=== PATIENT | female | born 1950 | race Caucasian/White ===

== ENCOUNTER 2018-10-14 05:40 | Outpatient (CLI) | payer MEDICARE ==
[~2018-10-14] VITALS: Ht 167.6 cm; Wt 90.7 kg
[2018-10-14] MEDS ORDERED: METO50TA15 PO (09:20)
[2018-10-14] MEDS ORDERED: VERA180T5 PO (09:20)
[2018-10-14] MEDS ORDERED: ATOR10TA66 PO (09:20)
[2018-10-14] MEDS ORDERED: NF-METHI10 PO (09:20)
[2018-10-14] MEDS ORDERED: INSU100I29 SQ (12:23)
[2018-10-14] MEDS ORDERED: OMEP20CA12 PO (12:23)
[2018-10-14] MEDS ORDERED: INSU100I14 SQ (12:23)
[2018-10-14] MEDS ORDERED: METF-397 PO (12:23)
== END 2018-10-14 12:29 | disposition home or self-care (01) ==
LOC: PREOP 05:40
PROVIDERS: ATTEND Podiatrist Foot & Ankle Surgery
DX: Z01.818 Encounter for other preprocedural examination (principal)

== ENCOUNTER 2018-10-22 10:42 | Day surgery (SDC) | payer MEDICARE ==
[~2018-10-22] VITALS: Ht 167.6 cm; Wt 90.7 kg
[~2018-10-22 10:42] MED LIST: ATOR10TA66 PO; INSU100I14 SQ; INSU100I29 SQ; METF-397 PO; METO50TA15 PO; NF-METHI10 PO; OMEP20CA12 PO; VANCOMYCIN INJECTION 1,000 MG in NS (IVPB) 250 ML IV ONE; VERA180T5 PO
[2018-10-22] MEDS ORDERED: LACTATED RINGERS 1,000 ML IV PRN ×2 (11:08)
[2018-10-22 11:30] VITALS: BP 182/60
[2018-10-22] MEDS ORDERED: PROPOFOL INJECTION 0 ML IV ONE (11:47)
[2018-10-22] MEDS ORDERED: MIDAZOLAM 2 MG/2 ML (VERSED) VIAL ONE (11:47)
[2018-10-22] MEDS ORDERED: DEXAMETHASONE 10 MG/ML (DECADRON) 1 ML VIAL ONE (11:48)
[2018-10-22] MEDS ORDERED: LIDOCAINE 1% INJ 20 ML 20 ML VIAL ONE (11:49)
[2018-10-22] MEDS ORDERED: BUPIVACAINE 0.5% 30 ML (SENSORCAINE) VIAL ONE (11:49)
[2018-10-22] MEDS ORDERED: LIDOCAINE PF 2% 5 ML (XYLOCAINE) VIAL ONE (12:47)
[2018-10-22] MEDS ORDERED: proPOfol 200 MG/20 ML (DIPRIVAN) VIAL IV ONE (12:47)
[2018-10-22] MEDS ORDERED: fentaNYL INJECTION 100 MCG/2 ML AMP ONE (12:49)
[2018-10-22] MEDS ORDERED: ONDANSETRON 4 MG/2 ML (SDV) Z0FRAN ONE (13:12)
--- NOTE | 2018-10-22 13:14 | Progress Note-Pre Operative ---
Pre-Operative Progress Note H&P Reviewed The H&P was reviewed, patient examined and no changes noted. Date Seen by Provider: Oct 22, 2018 Time Seen by Provider: 12:50 Date H&P Reviewed: Oct 22, 2018 Time H&P Reviewed: 12:51 Pre-Operative Diagnosis: Exostosis left 5th metatarsal GUANAKITO DONALD DPM Oct 22, 2018 13:14
[2018-10-22] MEDS ORDERED: LACTATED RINGERS 1,000 ML IV SCH (13:50)
--- NOTE | 2018-10-22 13:50 | Progress Note-Post Operative ---
Post-Operative Progess Note Surgeon (s)/Gas Meter Installer (s) Surgeon GUANAKTIO DONALD DPM Gas Meter Installer: none Pre-Operative Diagnosis Exostosis left 5th metatarsal Post-Operative Diagnosis Soft Tissue Lesion left 5th metatarsal base area Procedure & Operative Findings Date of Procedure 10/22/18 Procedure Performed/Findings Excisional Biopsy of the left foot lesion Anesthesia Type General Estimated Blood Loss Estimated blood loss (mL): minimal Specimens/Packing Specimens Removed Soft tissue lesion of the left 5th metatarsal base GUANAKITO DONALD DPM Oct 22, 2018 13:50
[2018-10-22] MEDS ORDERED: ACHD5005 PO (13:53)
[2018-10-22] MEDS ORDERED: HYDROcodone/APAP 5 MG/325 MG (LORTAB) TAB PO PRN (14:00)
[2018-10-22] MEDS ORDERED: ONDANSETRON 4 MG/2 ML (SDV) Z0FRAN IVP PRN (14:00)
[2018-10-22] MEDS ORDERED: morphine INJ 10 MG/ML 1ML (SYR OR VIAL) IVP ONE (14:00)
[2018-10-22] MEDS ORDERED: diphenhydrAMINE 50 MG/ML INJ (BENADRYL) ONE (14:03)
[2018-10-22] MEDS ORDERED: diphenhydrAMINE 50 MG/ML INJ (BENADRYL) IVP ONE (14:15)
[2018-10-22 14:55] VITALS: BP 160/75
--- NOTE | 2018-10-22 15:04 | Physical Therapy Progress Note ---
Therapy Progress Note PT discussed with family on equipment needs and patient status PLOF. Family report patient has FWW and family support established and they declined PT intervention. Thank you for this referral. RUBEN HOLLAND PT Oct 22, 2018 15:04
[2018-10-22] MEDS ORDERED: HYDROcodone/APAP 5 MG/325 MG (LORTAB) TAB ONE (15:19)
[2018-10-22 15:25] VITALS: BP 165/82
[2018-10-22 15:55] VITALS: BP 164/86
[2018-10-22 16:05] VITALS: BP 164/86
--- NOTE | 2018-10-23 00:34 | OPERATIVE REPORT ---
DATE OF SERVICE: 10/22/2018 SURGEON: Flavia Donald DPM. PREOPERATIVE DIAGNOSIS: Exostosis left fifth metatarsal. POSTOPERATIVE DIAGNOSIS: Soft tissue lesion, left fifth metatarsal base area. PROCEDURE: Excisional biopsy of the lesion left fifth metatarsal base area. WOUND CLASS: Clean. ANESTHESIA: General. HEMOSTASIS: Pneumatic thigh tourniquet at 300 mmHg. INDICATIONS: This 67-year-old female presents complaining of painful lesion to the dorsal lateral aspect of the left foot. Conservative therapy has met with unsatisfactory results and the patient is agreeable to surgical intervention after risks and complications were discussed at length. No guarantees were extended to the patient and she is willing to proceed. DESCRIPTION OF PROCEDURE: The patient was brought back to the operating table, placed in secure supine position. A general anesthetic was then induced. A pneumatic thigh tourniquet was placed on the left lower extremity over several layers of padding. Appropriate timeout was performed. The left foot was then prepped and draped in normal sterile manner. The left foot was then elevated and allowed to exsanguinate, after which the tourniquet was inflated to 300 mmHg. Attention was then directed to the dorsal lateral aspect of the left 5th metatarsal base area overlying the elevated soft tissue lesion where a 2 cm longitudinal linear incision was created. The incision was deepened in the same plane with great care to identify and retract all vital neurovascular structures. All the necessary blood vessels were cauterized as encountered. The incision was deepened down to the deep tissue where the deep fascia was located. Overlying the periosteum was a hard soft tissue mass, but was not necessarily strongly adhered to the periosteum and had a crystal type appearance to it and it was excised and sent for gross and microscopic evaluation. This area was debrided and hand rasp was utilized to smooth out the area. The area was then flushed with copious amounts of normal saline, after which closure was then performed in layers. Deep closure was performed with 4-0 Vicryl, superficial with 4-0 Vicryl, skin was closed with 4-0 Prolene in a simple interrupted type stitch. Postoperative injection consisted of 6 mL of 0.5% Marcaine plain in a local infusion to the surgical site as well as 10 mg dexamethasone. Postoperative dressing consisted of Betadine soaked Adaptic, sterile 4 x 4, sterile Kerlix all secured with a Coban wrap. The patient tolerated the anesthesia and procedure well and was transported from the operating room to the recovery area with vital signs stable and vascular status intact to all digits of the left foot. The patient was given postoperative instructions and she is to follow up in my office in 10 days' period of time or sooner if necessary. Job ID: [id number] DocumentID: [id number] Dictated Date: 10/22/2018 13:57:54 Project Officer Date: 10/23/2018 00:33:46 Dictated By: FLAVIA DONALD DPM
== END 2018-10-22 16:05 | disposition home or self-care (01) ==
LOC: SDC 10:42
PROVIDERS: ATTEND Podiatrist Foot & Ankle Surgery
DX: M89.9 Disorder of bone, unspecified (principal); E11.9 Type 2 diabetes mellitus without complications; E05.90 Thyrotoxicosis, unspecified without thyrotoxic crisis or storm; Z79.4 Long term (current) use of insulin; Z79.899 Other long term (current) drug therapy
CPT/HCPCS: 82962; 87081

== ENCOUNTER → 2019-03-01 | Outpatient (CLI) | payer MEDICARE ==
[~2019-03-01] MED LIST changes: +ACHD5005 PO; -VANCOMYCIN INJECTION 1,000 MG in NS (IVPB) 250 ML IV ONE; +VERA180T11 PO; -VERA180T5 PO
[2019-03-01 10:55] LABS: ALANINE AMINOTRANSFERASE 27 U/L (0-55); ALBUMIN 3.9 GM/DL (3.2-4.5); ALKALINE PHOSPHATASE 123 U/L (40-136); BILIRUBIN,TOTAL 0.4 MG/DL (0.1-1.0); BUN/CREATININE RATIO 38; CALCIUM 9.2 MG/DL (8.5-10.1); CARBON DIOXIDE 23 MMOL/L (21-32); CHLORIDE 107 MMOL/L (98-107); CREATININE SERUM 0.53 MG/DL (0.60-1.30); GFR ESTIMATED > 60; GLUCOSE 82 MG/DL (70-105); POTASSIUM 4.2 MMOL/L (3.6-5.0); SODIUM 144 MMOL/L (135-145); TOTAL PROTEIN 6.7 GM/DL (6.4-8.2)
== END ==
LOC: LAB FS 10:13
PROVIDERS: ATTEND Pediatrics
DX: E11.22 Type 2 diabetes mellitus with diabetic chronic kidney disease (principal); N18.1 Chronic kidney disease, stage 1; Z79.4 Long term (current) use of insulin
CPT/HCPCS: 36415; 80053; 83036

== ENCOUNTER → 2019-05-06 | Outpatient (CLI) | payer MEDICARE ==
[~2019-05-06] VITALS: Ht 167.6 cm; Wt 75.7 kg
[~2019-05-06] MED LIST changes: +CATHETER FLUSH 10 ML SYR IV PRN; -OMEP20CA12 PO; +OMEP20CA13 PO; +REGADENOSON 0.4 MG/5 ML SYR (LEXISCAN) IV ONE
[2019-05-06 08:09] VITALS: BP 174/89
[2019-05-06 08:11] VITALS: BP 188/79
--- NOTE | 2019-05-06 15:03 | STRESS TEST ---
DATE OF SERVICE: 05/06/2019 NUCLEAR MYOVIEW REPORT REFERRING PHYSICIAN: Dr. Matias Arora. In summary, the patient was injected with 10.77 mCi of technetium-99 Myoview and the resting images were obtained. With peak stress level, a 30.9 mCi of technetium-99 Myoview was injected and the stress images were acquired. The resting and stress images were reviewed and compared in the short axis, horizontal long axis, and vertical long axis views. Review of the images showed breast attenuation affecting the quality of the images. There is typical female pattern. No significant ischemia or infarction was seen. SSS is 5, SDS 1. There is mild decreased uptake at the mid to apical anterior septum with subtle reversibility. TID value is 0.96. On the gated images, the left ventricle appeared to be normal size with normal contractility. Calculated ejection fraction is 63%. CONCLUSION: 1. Breast attenuation with typical female pattern with no significant ischemia or infarction on SPECT images. 2. Normal left ventricular size with normal contractility. Calculated ejection fraction is 63%. Job ID: [id number] DocumentID: [id number] Dictated Date: 05/06/2019 12:02:55 Beveling And Edging Machine Operator Date: 05/06/2019 15:02:03 Dictated By: GRICEL LEYVA MD
== END ==
LOC: CARD 05:48
PROVIDERS: ATTEND Pediatrics
DX: R07.89 Other chest pain (principal)
CPT/HCPCS: 78452; 93017